=== PATIENT | female | born 1955 | race Caucasian/White ===

== ENCOUNTER 2021-11-04 12:30 | Emergency (ER) | payer BC, OTHER ==
[2021-11-04 12:45] VITALS: BP 159/76; PULSE 47; TEMP 97.9; BMI 27.4
[2021-11-04] MEDS ORDERED: ACETAMINOPHEN 1000 MG/100 ML BAG IVPB ONE (13:35)
[2021-11-04] MEDS ORDERED: METOCLOPRAMIDE HCL INJECTION 10 MG/2 ML VIAL IVPUSH ONE (13:35)
[2021-11-04] MEDS ORDERED: SODIUM CHLORIDE 0.9% 500 ML INFUS.BAG IV ONE (13:35)
[2021-11-04] MEDS ORDERED: METOCLOPRAMIDE HCL INJECTION 10 MG/2 ML VIAL ONE (14:06)
[2021-11-04] MEDS ORDERED: ACETAMINOPHEN INJECTION 100 ML IVPB ONE (14:06)
[2021-11-04] MEDS ORDERED: ACETAMINOPHEN 500 MG TABLET (FP) PO ONE (14:39)
[2021-11-04] MEDS ORDERED: ACETAMINOPHEN 325 MG TABLET (FP) ONE (14:46)
== END 2021-11-04 15:25 | disposition home or self-care (01) ==
LOC: JER 12:30
DX: R51.9 Headache, unspecified (principal)
CPT/HCPCS: 70450-TC; 99284-25